=== PATIENT | male | born 1950 ===

== ENCOUNTER 2017-01-24 11:17 | Inpatient (IN) | payer MEDICARE, OTHER ==
[2017-01-24] MEDS ORDERED: ACETAMINOPHEN500 M4 PO (11:58)
[2017-01-24] MEDS ORDERED: VITAMIN B-121000 MC1 PO (11:59)
[2017-01-24] MEDS ORDERED: LACTINEX CHEWA1 EAC1 PO (11:59)
[2017-01-24] MEDS ORDERED: ZYLOPRIM100 M1 PO (11:59)
[2017-01-24] MEDS ORDERED: BACLOFEN20 M1 PO (12:00)
[2017-01-24] MEDS ORDERED: BASAGLAR K100 UNIT/1 SC (12:00)
[2017-01-24] MEDS ORDERED: CALCITRIOL0.25 MC1 PO (12:01)
[2017-01-24] MEDS ORDERED: CALCIUM CHEWS PO (12:01)
[2017-01-24] MEDS ORDERED: COREG25 M1 PO (12:01)
[2017-01-24] MEDS ORDERED: CELEXA20 M2 PO (12:01)
[2017-01-24] MEDS ORDERED: CARTIA XT240 M1 PO (12:02)
[2017-01-24] MEDS ORDERED: CLOMIPHENE CITR50 MG PO (12:02)
[2017-01-24] MEDS ORDERED: VITAMIN D31000 UNI3 PO (12:02)
[2017-01-24] MEDS ORDERED: FISH OIL 1,2001 EAC7 PO (12:03)
[2017-01-24] MEDS ORDERED: GLUCOTROL5 M1 PO (12:03)
[2017-01-24] MEDS ORDERED: FIBER GUMMIES1 EACH PO (12:03)
[2017-01-24] MEDS ORDERED: LASIX40 M1 PO (12:03)
[2017-01-24] MEDS ORDERED: GLUCOPHAGE1000 M1 PO (12:04)
[2017-01-24] MEDS ORDERED: HUMALOG100 UNITS/ SC (12:04)
[2017-01-24] MEDS ORDERED: COZAAR25 M1 PO (12:04)
[2017-01-24] MEDS ORDERED: CHEWABLE-VITE1 EAC1 PO (12:05)
[2017-01-24] MEDS ORDERED: METOLAZONE2.5 M1 PO (12:05)
[2017-01-24] MEDS ORDERED: PERCOCET 5-3251 EACH PO (12:05)
[2017-01-24] MEDS ORDERED: NUCYNTA ER100 M1 PO (12:05)
[2017-01-24] MEDS ORDERED: POTASSIUM CHLO10 ME2 PO (12:06)
[2017-01-24] MEDS ORDERED: PRAVASTATIN SOD20 M1 PO (12:06)
[2017-01-24] MEDS ORDERED: PROTONIX40 M2 PO (12:06)
[2017-01-24] MEDS ORDERED: REQUIP1 M1 PO (12:07)
[2017-01-24] MEDS ORDERED: FLOMAX0.4 M1 PO (12:07)
[2017-01-24] MEDS ORDERED: ULTRAM50 M1 PO (12:07)
[2017-01-24] MEDS ORDERED: VENTOLIN HFA18 G2 PO (12:07)
[2017-01-24] MEDS ORDERED: [UNRECOGNIZED DRUG - OTHER] PO (12:08)
[2017-01-24] MEDS ORDERED: COMBIGAN EYE DRO5 M1 EACH EYE (12:08)
[2017-01-24] MEDS ORDERED: COUMADIN4 M1 PO (12:09)
[2017-01-24 12:21] LABS: INR 4.1 INR (0.9-1.1); PROTHROMBIN TIME 50.3 SECONDS (9.0-13.6)
[2017-01-24 12:33] LABS: ANION GAP 14 mmol/L (0-20); BLOOD UREA NITROGEN 25 mg/dl (6-24); CARBON DIOXIDE-VENOUS 23 mmol/L (22-32); CHLORIDE 109 mmol/l (96-110); CREATININE 1.48 mg/dl (0.60-1.30); GLUCOSE 187 mg/dL (70-110); POTASSIUM 4.7 mmol/L (3.7-5.1); SODIUM 141 mmol/L (135-145); eGFR VALUE FOR BLACK 57 mL/Min
[2017-01-24 13:23] LABS: BASO % 0.2 % (0-2); EOS % 0.6 % (0-7); EOSINOPHIL ABSOLUTE COUNT 0.1 tho/cmm (0.0-0.7); HGB-HEMOGLOBIN 11.6 gm/dl (13.5-17.0); IMMATURE GRANULOCYTES ABSOLUTE 0.05 tho/cmm (0-0.03); IMMATURE GRANULOCYTES PERCENT 0.3 % (0-0.3); LYMPH % 6.4 % (20-45); LYMPH ABSOLUTE COUNT 1.1 tho/cmm (0.8-4.5); MCH (MEAN CORPUSCULAR HGB) 25.8 pg (28.0-32.0); MCHC MEAN CORPUSCULAR HGB CONC 31.4 % (32.0-36.0); MCV (MEAN CELL VOLUME) 82.4 fl (82.0-96.0); MEAN PLATELET VOLUME 9.5 cmc (9.4-12.4); MONO % 6.2 % (0-12); MONOCYTE ABSOLUTE COUNT 1.1 tho/cmm (0.0-1.2); NEUTROPHIL ABSOLUTE COUNT 14.8 tho/cmm (1.6-8.0); NEUTROPHIL-AUTOMATED 14.8 tho/cmm (1.6-8.0); NEUTROPHILS % 86.3 % (40-80); PLATELET COUNT 122 tho/cmm (150-450); RED BLOOD COUNT 4.49 mil/cmm (4.40-5.70); RED CELL DISTRIBUTION WIDTH 15.6 % (12.4-16.4); WHITE BLOOD COUNT 17.2 tho/cmm (4.0-10.0)
[2017-01-24 19:59] LABS: ABG CO2 ARTERIAL 24 mmol/L (21-27); ARTERIAL BLD GAS O2 SATURATION 83 % (95-98); ARTERIAL BLOOD GAS PCO2 36 mmHg (32-45); BICARBONATE 22 mmol/L (21-28); BLOOD GAS BASE EXCESS -1 mM/L (-/+3); PH 7.41 Units (7.35-7.45)
[2017-01-24 20:01] LABS: BASO % 0.1 % (0-2); HGB-HEMOGLOBIN 12.2 gm/dl (13.5-17.0); IMMATURE GRANULOCYTES ABSOLUTE 0.04 tho/cmm (0-0.03); IMMATURE GRANULOCYTES PERCENT 0.3 % (0-0.3); LYMPH % 3.8 % (20-45); LYMPH ABSOLUTE COUNT 0.5 tho/cmm (0.8-4.5); MCH (MEAN CORPUSCULAR HGB) 26.2 pg (28.0-32.0); MCHC MEAN CORPUSCULAR HGB CONC 32.1 % (32.0-36.0); MCV (MEAN CELL VOLUME) 81.7 fl (82.0-96.0); MEAN PLATELET VOLUME 9.6 cmc (9.4-12.4); MONO % 0.6 % (0-12); MONOCYTE ABSOLUTE COUNT 0.1 tho/cmm (0.0-1.2); NEUTROPHIL ABSOLUTE COUNT 12.8 tho/cmm (1.6-8.0); NEUTROPHIL-AUTOMATED 12.8 tho/cmm (1.6-8.0); NEUTROPHILS % 95.2 % (40-80); PLATELET COUNT 114 tho/cmm (150-450); RED BLOOD COUNT 4.65 mil/cmm (4.40-5.70); RED CELL DISTRIBUTION WIDTH 15.5 % (12.4-16.4); WHITE BLOOD COUNT 13.5 tho/cmm (4.0-10.0)
[2017-01-24 20:03] LABS: ARTERIAL PO2 49 mmHg (70-100)
[2017-01-24 20:17] LABS: ALBUMIN 3.3 g/dl (3.5-5.0); ALT/SGPT 29 U/L (12-78); ANION GAP 14 mmol/L (0-20); AST/SGOT 28 U/L (10-40); BILIRUBIN,TOTAL 0.7 mg/dl (0.0-1.5); BLOOD UREA NITROGEN 25 mg/dl (6-24); CALCIUM 8.2 mg/dl (8.5-10.5); CARBON DIOXIDE-VENOUS 25 mmol/L (22-32); CHLORIDE 108 mmol/l (96-110); CREATININE 1.52 mg/dl (0.60-1.30); POTASSIUM 4.6 mmol/L (3.7-5.1); SODIUM 142 mmol/L (135-145); eGFR VALUE FOR BLACK 55 mL/Min
[2017-01-24 20:20] LABS: ALKALINE PHOSPHATASE 28 U/L (33-138); GLUCOSE 286 mg/dL (70-110)
[2017-01-25 06:24] LABS: INR 2.9 INR (0.9-1.1); PROTHROMBIN TIME 34.9 SECONDS (9.0-13.6)
[2017-01-25] MEDS ORDERED: ROPINIROLE HCL1 M1 PO (14:41)
[2017-01-26 06:04] LABS: INR 2.5 INR (0.9-1.1); PROTHROMBIN TIME 29.6 SECONDS (9.0-13.6)
[2017-01-26 06:18] LABS: ANION GAP 10 mmol/L (0-20); BLOOD UREA NITROGEN 26 mg/dl (6-24); CALCIUM 7.7 mg/dl (8.5-10.5); CARBON DIOXIDE-VENOUS 29 mmol/L (22-32); CHLORIDE 106 mmol/l (96-110); CREATININE 1.49 mg/dl (0.60-1.30); POTASSIUM 3.9 mmol/L (3.7-5.1); SODIUM 141 mmol/L (135-145); eGFR VALUE FOR BLACK 56 mL/Min
[2017-01-26 06:21] LABS: GLUCOSE 93 mg/dL (70-110)
[2017-01-27 05:22] LABS: BASO % 0.3 % (0-2); EOSINOPHIL ABSOLUTE COUNT 0.1 tho/cmm (0.0-0.7); HCT-HEMATOCRIT 33.6 % (36.0-53.5); HGB-HEMOGLOBIN 10.7 gm/dl (13.5-17.0); LYMPH % 11.9 % (20-45); LYMPH ABSOLUTE COUNT 1.4 tho/cmm (0.8-4.5); MCH (MEAN CORPUSCULAR HGB) 26.2 pg (28.0-32.0); MCHC MEAN CORPUSCULAR HGB CONC 31.8 % (32.0-36.0); MCV (MEAN CELL VOLUME) 82.2 fl (82.0-96.0); MEAN PLATELET VOLUME 9.3 cmc (9.4-12.4); MONO % 9.5 % (0-12); MONOCYTE ABSOLUTE COUNT 1.1 tho/cmm (0.0-1.2); NEUTROPHIL ABSOLUTE COUNT 9.1 tho/cmm (1.6-8.0); NEUTROPHIL-AUTOMATED 9.1 tho/cmm (1.6-8.0); NEUTROPHILS % 77.3 % (40-80); PLATELET COUNT 137 tho/cmm (150-450); RED BLOOD COUNT 4.09 mil/cmm (4.40-5.70); RED CELL DISTRIBUTION WIDTH 15.5 % (12.4-16.4); WHITE BLOOD COUNT 11.8 tho/cmm (4.0-10.0)
[2017-01-27 05:38] LABS: ANION GAP 11 mmol/L (0-20); BLOOD UREA NITROGEN 23 mg/dl (6-24); CALCIUM 7.6 mg/dl (8.5-10.5); CARBON DIOXIDE-VENOUS 31 mmol/L (22-32); CHLORIDE 105 mmol/l (96-110); CREATININE 1.46 mg/dl (0.60-1.30); GLUCOSE 107 mg/dL (70-110); POTASSIUM 3.6 mmol/L (3.7-5.1); SODIUM 143 mmol/L (135-145); eGFR VALUE FOR BLACK 58 mL/Min
[2017-01-27 06:06] LABS: INR 1.8 INR (0.9-1.1); PROTHROMBIN TIME 21.1 SECONDS (9.0-13.6)
[2017-01-27 06:34] LABS: PROCALCITONIN 0.11 ng/ml (0.05-0.09)
[2017-01-28 05:48] LABS: BASO % 0.3 % (0-2); EOSINOPHIL ABSOLUTE COUNT 0.1 tho/cmm (0.0-0.7); HCT-HEMATOCRIT 33.4 % (36.0-53.5); HGB-HEMOGLOBIN 10.7 gm/dl (13.5-17.0); IMMATURE GRANULOCYTES ABSOLUTE 0.06 tho/cmm (0-0.03); IMMATURE GRANULOCYTES PERCENT 0.5 % (0-0.3); LYMPH % 13.4 % (20-45); LYMPH ABSOLUTE COUNT 1.5 tho/cmm (0.8-4.5); MCV (MEAN CELL VOLUME) 81.1 fl (82.0-96.0); MEAN PLATELET VOLUME 9.2 cmc (9.4-12.4); MONO % 8.6 % (0-12); NEUTROPHIL ABSOLUTE COUNT 8.6 tho/cmm (1.6-8.0); NEUTROPHIL-AUTOMATED 8.6 tho/cmm (1.6-8.0); NEUTROPHILS % 76.2 % (40-80); PLATELET COUNT 121 tho/cmm (150-450); RED BLOOD COUNT 4.12 mil/cmm (4.40-5.70); RED CELL DISTRIBUTION WIDTH 15.6 % (12.4-16.4); WHITE BLOOD COUNT 11.3 tho/cmm (4.0-10.0)
[2017-01-28 05:57] LABS: INR 1.4 INR (0.9-1.1)
[2017-01-28 06:04] LABS: ANION GAP 11 mmol/L (0-20); BLOOD UREA NITROGEN 25 mg/dl (6-24); CALCIUM 7.7 mg/dl (8.5-10.5); CARBON DIOXIDE-VENOUS 31 mmol/L (22-32); CHLORIDE 106 mmol/l (96-110); CREATININE 1.49 mg/dl (0.60-1.30); GLUCOSE 140 mg/dL (70-110); POTASSIUM 3.8 mmol/L (3.7-5.1); SODIUM 144 mmol/L (135-145); eGFR VALUE FOR BLACK 56 mL/Min
[2017-01-28] MEDS ORDERED: LEVAQUIN750 M1 PO (11:29)
[2017-01-28] MEDS ORDERED: ANORO ELLIPTA1 EAC1 INH (11:41)
== END 2017-01-28 14:00 | DRG 291 ==
LOC: EDMED 11:17 → EMR2 15:08 → CAR1 18:40 → PCUB 01-26 18:56
PROVIDERS: Emergency Medicine; Hospitalist; Internal Medicine; ADMIT Hospitalist
PROC: 05HF33Z Insertion of Infusion Device into Left Cephalic Vein, Percutaneous Approach (ICD-10-PCS; principal; 2017-01-26)
DX: I50.33 Acute on chronic diastolic (congestive) heart failure (principal); J18.9 Pneumonia, unspecified organism; J96.21 Acute and chronic respiratory failure with hypoxia; N17.9 Acute kidney failure, unspecified; I48.0 Paroxysmal atrial fibrillation; E11.22 Type 2 diabetes mellitus with diabetic chronic kidney disease; J44.0 Chronic obstructive pulmonary disease with (acute) lower respiratory infection; I13.0 Hypertensive heart and chronic kidney disease with heart failure and stage 1 through stage 4 chronic kidney disease, or unspecified chronic kidney disease; R04.2 Hemoptysis; Z68.42 Body mass index [BMI] 45.0-49.9, adult; E11.40 Type 2 diabetes mellitus with diabetic neuropathy, unspecified; N18.9 Chronic kidney disease, unspecified; E66.9 Obesity, unspecified; E87.6 Hypokalemia; F32.9 Major depressive disorder, single episode, unspecified; G47.33 Obstructive sleep apnea (adult) (pediatric); K59.00 Constipation, unspecified; E66.01 Morbid (severe) obesity due to excess calories; Z79.01 Long term (current) use of anticoagulants; Z79.4 Long term (current) use of insulin; Z87.891 Personal history of nicotine dependence; Z99.81 Dependence on supplemental oxygen; Z88.0 Allergy status to penicillin; Z86.718 Personal history of other venous thrombosis and embolism
CPT/HCPCS: C1751; C8929; G8978-GP-CL; G8979-GP-CL; J1815; J1940; J1956; J2930; J7030